=== PATIENT | male | born 1990 | race Caucasian/White ===

== ENCOUNTER 2018-09-14 06:23 | Inpatient (IN) ==
--- NOTE | 2018-08-16 15:55 | Anesthesiology Consultation ---
Date of Service August 16, 2018 Assessment & Plan (1) Encounter for pre-operative examination: Chart review: Patient not seen at PAT/no RN phone interview at time of review. Chart review from available information. Will need to review PMHX/PSHX AM DOS. Chart Review Chart Review: Acceptable Risk for Surgery and Patient NOT seen in Pre Admission Testing History Surgery Operation Date: 08/18/18 08:00 Proposed Procedures p EP Procedure (WPW) w/Mapping w/Anesthesia - Lori Acosta DO Height/Weight Height: 5 ft 7 in Weight: 63.504 kg Allergies Allergy/AdvReac Type Severity Reaction Status Date / Time Penicillins Allergy Unknown PER RECORDS Unverified 08/16/18 15:54 Medications Home Medications Medication Instructions Recorded Confirmed Last Taken ibuprofen 400 mg PO TID 08/16/18 08/16/18 Unknown Past Medical History Medical History Anxiety History of amputation of right arm above elbow 2014 PTSD (post-traumatic stress disorder) Palpitations Phantom limb pain WPW (Docxb-Mfaapmxuy-Kwhow syndrome) Testing Laboratory Results 08/01/18 WBC 9.06 H/H 15.6/45.7 PLATELETS 303 SODIUM 141 POTASSIUM 4.7 CHLORIDE 102 CO2 28 BUN 12 CREATININE 0.8 GLUCOSE 90 Electrocardiogram Date: 08/01/18 NSR at 73bpm. WPW. No significant change compared to 06/24/18 EKG per cardio. Echocardiogram Date: 08/09/18 LVEF 62%. Normal cardiac chamber sizes. "Normal" ECHO. No RWMA. No significant valvular disease. Other Testing 48 Hour Holter Monitor (worn for 1.5 days per patient): 07/2018: poor data quality. dominant NSR with mean HR 85bpm. Slowest HR 51bpm. Fastest HR 150bpm. Narrow tall QRS complexes and shorter wider QRS complexes were present. One strip with narrow QRS demonstrated pre-excitation. No a. fib seen. One PAC. 1 PVC. No symptoms reported (report results per cardio 08/12/18 office visit note)
[~2018-09-14 06:23] MED LIST: LR 15ML/HR IV SCH
--- NOTE | 2018-09-14 08:13 | History & Physical Report ---
Date of Service September 14, 2018 Assessment & Plan (1) WPW syndrome: (2) Palpitations: History of Present Illness Chief Complaint: Palpitations; pt admitted for elective EPS with possible ablation due to WPW and palpitations Primary Care Provider: NO PCP Allergies Allergy/AdvReac Type Severity Reaction Status Date / Time Penicillins Allergy Unknown PER RECORDS Unverified 08/16/18 15:54 Home Medications Home Medications Medication Instructions Recorded Confirmed Type ibuprofen 400 mg PO TID 08/16/18 08/16/18 History Past Med/Surg History Medical History Anxiety History of amputation of right arm above elbow 2014 PTSD (post-traumatic stress disorder) Palpitations Phantom limb pain WPW (Lvtwu-Lgkcpnitb-Sghqk syndrome) Social History Preferred Language: Namibian Communication Ability: Effective Software Administrator Required: No Beliefs That Will Affect Care: None Current Living Situation: Significant Other Other Information That Helps Us Care for You: No Feels Safe at Home: Yes Safety Concerns: Feels Safe At This Time Smoking Status: Current every day smoker Tobacco Type: cigarettes Cigarettes Per Day: 10 Hx Alcohol Use: Yes Alcohol type: hard liquor Hx Substance Use: Yes substance use type: opiates Last Used Substance Other:: 1 yr ago Review of Systems All systems reviewed & are unremarkable except as noted in HPI & below Physical Exam Physical Exam: aaox3, NAD NC/AT, EOMI Supple No JVD Nrl S1/S2, No murmur CTA b/l no w/r/r soft nt/nd no LE edema b/l skin intact no focal deficits Results & Data Vital Signs (Past 12 Hours) Vital Signs Temp Pulse Resp BP Pulse Ox 09/14/18 07:11 37.2 C 90 14 138/96 98
--- NOTE | 2018-09-14 08:14 | Pre Anesthesia Assessment ---
Date of Service September 14, 2018 Pre Sedation Assessment Vital Signs Temp Pulse Resp BP Pulse Ox 09/14/18 07:11 37.2 C 90 14 138/96 98 Cardiovascular RRR, no murmur, no edema Respiratory normal respiratory effort, lungs clear to auscultation Pre-Sedation Airway Assessment Smoking Status: Current every day smoker Hx Sleep Apnea: No Short, Thick Neck: No Thyromental Distance: > or= 3.5 Finger Breadths Oral Cavity: + Capped Teeth Mallampati Class: II ASA: ASA3 NPO Status Date of Last Intake of Fluids: 09/13/18 Time of Last Intake of Fluids: 20:00 Date of Last Intake of Solid Food: 09/13/18 Time of Last Intake of Solid Foods: 20:00 Procedure Planning Contraindications for Sedation: none Current Medications Reviewed: Yes Notes The planned sedation has been discussed with the patient. Informed Consent was obtained. I have identified the patient, determined the appropriateness of sedation and have assessed the patient immediately prior to the procedure. All medicine(s) and interventions are by my order.
[2018-09-14] MEDS ORDERED: MIDAZOLAM HCL 5 MG/ML 1 ML VIAL ONE ×4 (08:27→11:02)
[2018-09-14] MEDS ORDERED: fentaNYL citrate 100 MCG/2 ML VIAL ONE ×4 (08:27→10:22)
[2018-09-14] MEDS ORDERED: ISOPROTERENOL HCL 0.2 MG/ML 5 ML AMP IV ONE (09:29)
[2018-09-14] MEDS ORDERED: HEPARIN SOD (PORCINE) 1000 UNIT/ML 10 ML VIAL ONE ×2 (10:00→10:02)
--- NOTE | 2018-09-14 11:57 | Post Anesthesia Assessment ---
Date of Service September 14, 2018 Post Sedation Assessment Vital Signs Temp Pulse Resp BP Pulse Ox 09/14/18 07:11 37.2 C 90 14 138/96 98 Recovery Score Activity: Moves 4 extremities Respiration: Deep Breath/Cough Circulation: +/-20% PreAnes Value Consciousness: Fully Awake Oxygen Saturation: > 92% On Room Air Discharge Sedation Level of Care: Fast Track Phase II Post Sedation Plan On clinical assessment, the patient appears to have tolerated the sedation without complications. Patient is recovering as anticipated. Patient will continue to be monitored by nursing and may be discharged when sedation discharge criteria are met per below protocol. Upon Completions of procedure and additional 15 minutes continue every 5 minute vital signs and the P.A.R. score; then discharge to a Phase I or Fast Track to Phase II per the following guidelines: * Discharge Patient to appropriate Phase II area if PAR is 8 or greater or return to pre- procedure baseline. The post - procedure orders will be as directed. * If PAR score is less than 8 or not return to pre-procedure baseline then patient will follow Phase I monitoring till PAR is reached for Phase II. The Phase I may be done in procedure room or may call to secure a Phase I area. * If naloxone or flumazenil are used for reversal, hold in Phase I for continued monitoring from when last reversal dose was given for a minimum of 60 minutes or longer pending the nurse and/or physician discretion of patient condition before discharge to Phase II. Please call the Sedation Physician to re-evaluate and complete post-note for discharge to Phase II area. Do NOT discharge from procedure sedation or Phase 1 until post- sedation evaluation note is complete by procedure /sedation MD Sedation Discharge Instructions to be given to the patient at discharge to home.
--- NOTE | 2018-09-14 11:58 | Operative Report ---
Post Operative Report Pre & Post Diagnosis Pre: Palpitations, WPW syndrome Post: AVRT, SR Operation Date: 09/14/18 08:00 <No data on this case meets the specified criteria> Procedure Operation Date: 09/14/18 08:00 Actual Procedures p EP Procedure - Lori Acosta DO p EPS + Ablation for SVT Flutter(Not Applicable) - DO nisa Zaman 3D Mapping (Carto)(Not Applicable) - DO nisa Zaman Drug Stimulation - Lori Acosta DO Surgeon Lori Acosta, Control Operator Flow Coat none Estimated Blood Loss 10 Findings Consistent with Post-Op Diagnosis Specimens none Description of Procedure see official report I attest to the content of the Intraoperative Record and any orders documented therein. Any exceptions are noted below.
[2018-09-14] MEDS ORDERED: OXYCODONE/ACETAMINOPHEN 5mg/325mg TAB PO PRN (11:59)
[2018-09-14] MEDS ORDERED: LORazepam 0.5 MG/1 ML VIAL IV PRN (11:59)
[2018-09-14] MEDS ORDERED: ACETAMINOPHEN 325 MG TAB PO PRN (11:59)
--- NOTE | 2018-09-14 12:05 | Discharge Summary ---
Date of Service September 14, 2018 Admission HPI Per Admitting Provider pt admitted for elective EPS with possible ablation; + ablations Admission Exam Per Admitting Provider aaox3, NAD NC/AT, EOMI Supple No JVD Nrl S1/S2, No murmur CTA b/l no w/r/r soft nt/nd no LE edema b/l skin intact no focal deficits Principal Diagnosis avrt s/p radiofrequency ablation of a Left posterior lateral bypass tract Discharge Exam aaox3, NAD NC/AT, EOMI Supple No JVD Nrl S1/S2, No murmur CTA b/l no w/r/r soft nt/nd no LE edema b/l skin intact no focal deficits b/l groins soft no hematoma Discharge Data Allergies Allergy/AdvReac Type Severity Reaction Status Date / Time Penicillins Allergy Unknown PER RECORDS Verified 09/14/18 15:39 Procedures Performed Operation Date: 09/14/18 08:00 Actual Procedures p EP Procedure - DO phill Zaman EPS + Ablation for SVT Flutter(Not Applicable) - DO nisa Zaman 3D Mapping (Carto)(Not Applicable) - DO nisa Zaman Drug Stimulation - Lori Acosta DO Hospital Course (1) SVT (supraventricular tachycardia): pt admitted for elective EPS with possible ablation due to WPW and palpitations. He underwent procedure without any complications-found to have a left posterior lateral bypass tract with successful ablation. He was very aggitated post procedure. Was monitored in the ICU then discharged home later that evening. Total Time Total Time Spent Total Time Spent (In Minutes): 30 Total Time Includes: Examination of the Patient, Discharge Planning, Medication Reconciliation and Other Discharge Plan Discharge Items Patient Disposition: Home - Self-Care Reason For Visit: YELNO-RFCQCQGZO-LFKMP SYNDROME (WPW) Discharge Diagnosis: AVRT s/p WPW ablation Condition: Good Discharge Goals: Improve function Activity: As commented below Lifting: No more than 10 pounds Lifting Comment: no heavy lifting or squating for 1 week Bathing: No limitations Non-emergency contact: Credit Manager Call non-emergency contact if: you have any medication questions Follow-up/Referrals: PCP,NO [Primary Care Provider] - Addtl Provider Instructions: f/u with Dr. Acosta in 1 month in [place]-the office will call you to confirm a time and day Prescriptions: Continued ibuprofen 400 mg Tablet 400 mg PO TID RF: 0 Stand-Alone Forms: My [facility] Discharge Orders: Discharge Order (Routine); Ordered 09/14/18 Ordered By: Alexander Sotelo Admission Data Admit Date/Time: 09/14/18 12:59 Attending Provider: Lori Acosta Admit Provider: Lori Acosta Primary Care Provider: PCP,NO Other Providers: Noe Eagle Service: Intensive Care Unit Other Interventions: Discharge Summary Assessment (RN) Last Done: 09/14/18 20:34
[2018-09-14] MEDS ORDERED: LORazepam 2 MG/4 ML VIAL ONE (12:28)
[2018-09-14] MEDS ORDERED: HALOPERIDOL LACTATE 5 MG/ML 1 ML VIAL IV STA ×2 (12:57→14:19)
[2018-09-14] MEDS ORDERED: KETAMINE HCL INJ 50 MG/ML 10 ML VIAL ONE (12:59)
[2018-09-14] MEDS ORDERED: KETAMINE HCL INJ 50 MG/ML 10 ML VIAL IV STA ×2 (13:11)
--- NOTE | 2018-09-14 13:21 | Critical Care Consultation ---
Date of Consultation September 14, 2018 Assessment & Plan (1) Disinhibition behavior: Reason Critically Ill: Patient critically ill due to disinhibited behavior with large vascular access sheaths and groin not responsive to verbal redirection requiring chemical and physical restraint PLAN: Neuro: Acute encephalopathy/disinhibition -Secondary to sedatives for ablation procedure -Initial aliquot of ketamine was 50 mg followed with additional 25 as patient was still attempting to set up and discontinue his vascular access sheaths Resp: End-tidal CO2 monitoring CV: Status post Ubiqd-Wrtupaaqo-Ymobe status post ablation -Patient's ACT precludes removal of vascular access sheaths at the present moment Fluids/Renal: Normal saline at 75 GI/Nutrition: N.p.o. until more awake Endocrine: ICU hyperglycemia protocol -We will perform bedside glucose check Vascular access: Peripheral IVs Code Status: Full I discussed the case with Dr. Sanchez he was a single accessory track which is now been ablated, we will continue to provide medical coverage for the patient as th e proposed timeline for arterial sheath removal will be 230 and then per policy he needs approximately 3 hours of supine time. We do anticipate discharge from the ICU following appropriate vascular access removal protocols. I have personally spent 45 minutes of critical care time in the direct management of this patient. This is a life/limb threatening event. This includes time spent evaluating patient, direct bedside care, chart review, placing orders, interpretation of diagnostic studies, discussion with consultants, patient, and/or family members regarding treatment decisions, as well as other required patient management activities. This time is exclusive of all separately billable procedures, and teaching time and separate from and in addition to any other critical care service time. Present on Admission?: No (2) SVT (supraventricular tachycardia): Present on Admission?: Yes (3) Palpitations: Present on Admission?: Yes (4) WPW syndrome: Present on Admission?: Yes (5) S/P ablation of accessory bypass tract: Present on Admission?: No History of Present Illness Attending Physician: Lori Acosta DO Allergies Allergy/AdvReac Type Severity Reaction Status Date / Time Penicillins Allergy Unknown PER RECORDS Verified 09/14/18 15:39 Home Medications Home Medications Medication Instructions Recorded Confirmed Type ibuprofen 400 mg PO TID 08/16/18 08/16/18 History Patient History Medical History Anxiety History of amputation of right arm above elbow 2014 PTSD (post-traumatic stress disorder) Palpitations Phantom limb pain WPW (Yovmc-Ddmxszpdg-Rizvf syndrome) Social History Preferred Language: Lithuanian Communication Ability: Effective Production Manager Required: No Beliefs That Will Affect Care: None Current Living Situation: Significant Other Other Information That Helps Us Care for You: No Feels Safe at Home: Yes Safety Concerns: Feels Safe At This Time Smoking Status: Current every day smoker Tobacco Type: cigarettes Cigarettes Per Day: 10 Hx Alcohol Use: Yes Alcohol type: hard liquor Hx Substance Use: Yes substance use type: opiates Last Used Substance Other:: 1 yr ago Review of Systems Review of Systems: Unobtainable due to reduced consciousness Physical Exam Physical Exam: General: RASS: +3, not verbally redirectable requiring physical and chemical restraint Skin: Warm, dry, vascular access sheaths and groin Head: Atraumatic Ears, nose, mouth and throat: airway patent Cardiovascular: Normal peripheral perfusion, tachycardia Respiratory: no respiratory distress Gastrointestinal: Non distended Musculoskeletal: No deformity, absence of right lower arm above the elbow amputation Results & Data Vital Signs (Past 12 Hours) Vital Signs Temp Pulse Resp BP Pulse Ox 09/14/18 07:11 37.2 C 90 14 138/96 98 ECG Additional Comments: EKG done immediately after ketamine administration revealed a sinus tachycardia with a QTC of 456. PG Care Time/CCT Total # of Minutes Spent Total Time Spent with Patient: Total time spent is greater than 50% in coordination of care (as documented) at patient's floor/unit and/or counseling patient: Critical Care Time: Yes Total Critical Care Time: 45
[2018-09-14] MEDS ORDERED: SODIUM CHLORIDE 0.9% 500 ML IV SCH (13:30)
[2018-09-14] MEDS ORDERED: SODIUM CHLORIDE 0.9% 1000ML 1,000 ML IV SCH (13:40)
[2018-09-14] MEDS: DEXMEDETOMIDINE HCL 200 MCG in SODIUM CHLORIDE 0.9% 48 ML IV SCH ×2 (14:02→15:45)
--- NOTE | 2018-09-14 20:23 | Critical Care Progress Note ---
Date of Service September 14, 2018 Subjective Patient was reevaluated at 2020. Patient is awake, alert, and oriented. His mother is present at bedside. Patient completed a meal tray. He is eating and drinking without issue. He was able to urinate. The patient is awake, alert, and oriented x4. He is requesting to be discharged at this time. His vital signs of normalized. He has no further complaints this time. At this point, I am comfortable with patient being discharged home in the care of his mother. Disposition notes per Dr. Whitlock. Results & Data Vital Signs (Past 12 Hours) Vital Signs Temp Pulse Pulse Resp BP BP Pulse Ox 09/14/18 19:47 82 09/14/18 18:50 76 97 09/14/18 18:45 78 105/48 L 98 09/14/18 18:40 83 98/52 L 97 09/14/18 18:35 80 79/58 L 97 09/14/18 18:30 79 87/49 L 98 09/14/18 18:25 80 95/61 L 98 09/14/18 18:20 79 87/60 L 98 09/14/18 18:15 80 99/59 L 97 09/14/18 18:10 78 94/52 L 97 09/14/18 18:05 83 93/53 L 97 09/14/18 18:00 81 98/53 L 97 09/14/18 17:55 84 101/61 100 09/14/18 17:50 78 99/57 L 97 09/14/18 17:45 75 95/63 L 97 09/14/18 17:40 75 99/61 L 97 09/14/18 17:35 76 105/59 L 96 09/14/18 17:30 76 103/65 97 09/14/18 17:25 78 96/61 L 96 09/14/18 17:20 76 96/64 L 97 09/14/18 17:15 75 99/59 L 97 09/14/18 17:10 78 106/63 97 09/14/18 17:05 76 89/58 L 97 09/14/18 17:00 76 92/60 L 96 09/14/18 16:55 76 105/64 97 09/14/18 16:50 75 103/62 97 09/14/18 16:45 74 104/60 97 09/14/18 16:40 75 99/57 L 97 09/14/18 16:35 75 102/59 L 97 09/14/18 16:30 75 98/57 L 97 09/14/18 16:25 75 104/58 L 97 09/14/18 16:20 77 103/57 L 97 09/14/18 16:15 77 92/56 L 96 09/14/18 16:10 76 92/56 L 97 09/14/18 16:05 76 95/56 L 97 09/14/18 16:00 78 88/63 L 97 09/14/18 15:58 37 C 78 14 99/65 L 98 09/14/18 15:55 78 99/65 L 96 09/14/18 15:50 79 102/77 98 09/14/18 15:45 78 74/61 L 96 09/14/18 15:40 78 76/57 L 96 09/14/18 15:35 77 86/53 L 97 09/14/18 15:30 77 89/55 L 98 09/14/18 15:25 78 95/56 L 96 09/14/18 15:22 79 91/61 L 97 09/14/18 15:20 79 79/62 L 95 09/14/18 15:15 78 90/59 L 97 09/14/18 15:10 79 101/65 96 09/14/18 15:05 79 83/59 L 96 09/14/18 15:00 80 96/51 L 96 09/14/18 14:55 82 93/47 L 98 09/14/18 14:50 82 107/59 L 95 09/14/18 14:45 84 91/66 L 95 09/14/18 14:40 84 103/57 L 96 09/14/18 14:35 87 110/66 95 09/14/18 14:30 90 102/65 98 09/14/18 14:25 106 H 121/83 97 09/14/18 14:23 93 H 134/74 98 09/14/18 14:15 107 H 119/68 98 09/14/18 14:00 102 H 127/87 99 09/14/18 13:45 102 H 132/80 98 09/14/18 13:33 104 H 98 09/14/18 13:30 119 H 136/91 99 09/14/18 13:15 110 H 20 129/70 98 PG Care Time/CCT Total # of Minutes Spent Total Time Spent with Patient: Total time spent is greater than 50% in coordination of care (as documented) at patient's floor/unit and/or counseling patient:
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
== END 2018-09-14 21:14 | disposition home or self-care (01) | DRG 274 ==
LOC: ASU 06:23 → 1E 12:59